=== PATIENT | male | born 1960 | race Caucasian/White ===

== ENCOUNTER 2016-03-02 09:11 | Outpatient (CLI) | payer OTHER ==
[~2016-03-02 09:11] MED LIST: ANDROGEL1 %; ASPIRIN ADULT L81 MG PO; HYCET1 ML PO
== END 2016-03-02 23:00 ==
LOC: LAB SRH 09:11
DX: Z90.49 Acquired absence of other specified parts of digestive tract (principal)
CPT/HCPCS: 90074; 90100; 95059